=== PATIENT | male | born 1995 | race American Indian/Alaskan Native ===

== ENCOUNTER 2018-08-26 19:52 | Emergency (ER) | payer MEDICAID, OTHER ==
[2018-08-26 20:14] VITALS: BP 117/72; PULSE 86; RESP 16; TEMP 98.5; O2SAT 99
--- NOTE | 2018-08-26 20:55 | C.PDOC ---
History Of Present Illness 23 y/o male c/o bump in groin that looked like pimple. pt sts it popped and small amt pus came out. pt denies penile pain, scrotal or teste pain, dysuria and penile discharge. pt does admit to unprotected sex. Time Seen by Provider: 08/26/18 20:26 Chief Complaint (Nursing): Male Genitourinary History Per: Patient History/Exam Limitations: no limitations Onset/Duration Of Symptoms: Days (1) Current Symptoms Are (Timing): Still Present Severity: Mild Quality Of Discomfort: "Pain" Associated Symptoms: denies: Fever, Chills, Loss Of Appetite, Urinary Symptoms Alleviating Factors: None Past Medical History Reviewed: Historical Data, Nursing Documentation, Vital Signs Vital Signs: Last Vital Signs Temp 98.5 F 08/26/18 20:09 Pulse 86 08/26/18 20:09 Resp 16 08/26/18 20:09 BP 117/72 08/26/18 20:09 Pulse Ox 99 08/26/18 20:09 Primary Care Provider: FAMILY PROVIDER,NO - Medical History PMH: No Chronic Diseases Family History: States: Unknown Family Hx - Social History Hx Tobacco Use: Yes Hx Alcohol Use: Yes Hx Substance Use: No - Immunization History Hx Tetanus Toxoid Vaccination: No Hx Influenza Vaccination: No Hx Pneumococcal Vaccination: No Review Of Systems Constitutional: Negative for: Fever, Chills Respiratory: Negative for: Cough, Shortness of Breath Gastrointestinal: Negative for: Vomiting, Abdominal Pain Genitourinary: Positive for: Penile Pain (mons pubis pain). Negative for: Dysuria, Frequency, Incontinence, Penile Discharge, Scrotal Pain Skin: Positive for: Other (opened pimple to right mons) Physical Exam - Physical Exam Appears: Non-toxic, No Acute Distress Skin: Warm, Dry, Other (unroofed pustule to right mons with mild surrounding induration, no erythema, no further drainage. on mons lateral to base of benis. chaperoned by VANESSA Zamorano ) Male Genital: Normal Inspection, No Testicular Tenderness, No Testicular Swelling, No Inguinal Tenderness, No Scrotal Swelling, Circumcised, Other (opened pustule base penis right mons area, chaperoned by VANESSA Zamorano. no penile lesions. no discharge from urethra noted. no teste tenderness ) ED Course And Treatment O2 Sat by Pulse Oximetry: 99 Medical Decision Making Medical Decision Making: pt with pustule that opened in pubic hair of mons, no penile discharge. no dysuria. plan to tx for for mrsa., sent ua and gc/chlamydia, but no symptoms. pt walked out of ED without receiving medication here nor rx. unable to contact patient; number not in service; called patient's next of kin, mother; and left message that pt should return to er for prescriptions. Disposition Counseled Patient/Family Regarding: Studies Performed, Diagnosis, Need For Followup, Rx Given - Disposition Referrals: [facility] [Outside] [facility] [Outside] Disposition: ELOPEMENT - ER ONLY Disposition Time: 21:05 Condition: GOOD Additional Instructions: Safe sex only. Warm compresses to right side groin. Take antibiotics as prescribed. You will be contacted if you have any STI that need treatment. Follow up with your doctor or in medical clinic. Prescriptions: Cephalexin [cephalexin] 500 mg PO Q6 #28 cap Sulfamethoxazole/Trimethoprim [Bactrim DS 800 mg-160 mg] 1 tab PO BID #20 tab Instructions: Folliculitis (DC) Forms: [facility] (French), General Discharge Instructions - Clinical Impression Clinical Impression: Folliculitis
[2018-08-26] MEDS ORDERED: Bacitracin 500 Units/gm Oint Foilpak UD TOP ONE (20:59)
[2018-08-26] MEDS ORDERED: Bacitracin 500 Units/gm Oint Foilpak UD ONE (21:10)
[2018-08-26 21:12] LABS: SQUAMOUS EPITHIAL < 1 /hpf (0-5); URINE BACTERIA RARE (<OCC); URINE BILIRUBIN NEGATIVE (NEGATIVE); URINE BLOOD NEGATIVE (NEGATIVE); URINE CLARITY Clear (Clear); URINE COLOR Yellow (YELLOW); URINE GLUCOSE (UA) NORMAL (Normal); URINE LEUKOCYTE ESTERASE NEG Leu/uL (Negative); URINE PROTEIN NEGATIVE (NEGATIVE)
== END 2018-08-26 20:46 | disposition left against medical advice (07) ==
LOC: C.ER 19:52
DX: L73.9 Follicular disorder, unspecified (principal)